=== PATIENT | female | born 1975 | race African-American/Black ===

== ENCOUNTER 2017-05-06 05:51 | Emergency (ER) | payer MEDICAID, OTHER ==
[~2017-05-06] VITALS: Ht 170.2 cm; Wt 116.0 kg
[2017-05-06 05:56] VITALS: BP 134/76
== END 2017-05-06 08:48 | disposition home or self-care (01) ==
LOC: ER 05:51
DX: R20.0 Anesthesia of skin (principal); R20.2 Paresthesia of skin; M79.671 Pain in right foot
CPT/HCPCS: 93971; 99284

== ENCOUNTER 2018-10-20 08:29 | Emergency (ER) | payer MEDICAID ==
[~2018-10-20] VITALS: Ht 172.7 cm; Wt 122.0 kg
[2018-10-20 08:50] VITALS: BP 146/91
[2018-10-20] MEDS ORDERED: KETOROLAC 60MG/2ML VIAL IM STA (09:01)
== END 2018-10-20 09:57 | disposition home or self-care (01) ==
LOC: ER 08:29
DX: K02.9 Dental caries, unspecified (principal); K08.89 Other specified disorders of teeth and supporting structures; I10 Essential (primary) hypertension
CPT/HCPCS: 81025; 96372; 99283; J1885

== ENCOUNTER 2023-04-08 20:11 | Emergency (ER) | payer MEDICAID ==
[~2023-04-08] VITALS: Ht 170.2 cm; Wt 123.0 kg
[2023-04-08 20:22] VITALS: O2SAT 99
[2023-04-08] MEDS ORDERED: ONDANSETRON 4MG ODT PO ONE (22:30)
[2023-04-08 22:37] LABS: BASOPHILS % 0.7 % (0.0-2.0); EOSINOPHILS % 0.7 % (0.0-5.0); HEMATOCRIT. 40.3 % (36.0-48.0); HEMOGLOBIN. 13.6 g/dL (12.0-16.0); LYMPHOCYTES % 31.8 % (20.0-50.0); MEAN CORPUSCULAR HEMOGLOBIN 31.4 pg (28.0-32.0); MEAN CORPUSCULAR HGB CONC 33.8 g/dL (31.0-37.0); MEAN PLATELET VOLUME 8.7 fl (7.4-10.4); MONOCYTES % 6.8 % (2.0-8.0); PLATELET 345 x1000/uL (130-400); RED BLOOD CELL COUNT 4.33 mill/uL (4.2-5.4); RED CELL DISTRIBUTION WIDTH 14.1 % (11.6-14.6); WHITE BLOOD COUNT 8.5 x1000/uL (4.5-11.0)
[2023-04-08 22:46] LABS: CHLORIDE 105 mEq/L (98-107); INDEX HEMOLYSI 1 (1-3); INDEX ICTERIC 1 (1-4); INDEX LIPEMIC 1 (1-3); POTASSIUM 3.5 mEq/L (3.5-5.1); SODIUM 137 mEq/L (136-145)
[2023-04-08 22:48] LABS: HCG SCREEN NEGATIVE
[2023-04-08 22:56] LABS: ALANINE AMINOTRANSFERASE 29 IU/L (13-61); ALBUMIN 3.7 g/dL (3.4-5.0); ASPARTATE AMINOTRANSFERASE 21 IU/L (15-37); BILIRUBIN TOTAL 0.5 mg/dL (0.1-1.0); CALCIUM 9.4 mg/dL (8.5-10.1); CARBON DIOXIDE 23 mEq/L (21-32); CREATININE 0.9 mg/dL (0.6-1.3); GLUCOSE 105 mg/dL (70-105); PROTEIN TOTAL 8.8 g/dL (6.0-8.3); TROPONIN I HIGH SENSITIVITY 9 ng/L (<54); UREA NITROGEN BLOOD 15 mg/dL (7-21)
[2023-04-08] MEDS: ACETAMINOPHEN 325MG TABLET PO NR ×2 (22:56→23:02)
[2023-04-08] MEDS ORDERED: KETOROLAC 30MG/ML VIAL IM NR (23:00)
[2023-04-08 23:10] VITALS: TEMP 98.4
[2023-04-08 23:22] VITALS: BP 155/83; PULSE 71; RESP 20
== END 2023-04-08 23:50 | disposition home or self-care (01) ==
LOC: ER 20:11
DX: R11.2 Nausea with vomiting, unspecified (principal); R51.9 Headache, unspecified
CPT/HCPCS: 99283; 80053; 81025; 84703; 85025; 84484; 36415; 96372; Q0162; J1885

== ENCOUNTER 2024-02-07 11:10 | Emergency (ER) | payer MEDICAID ==
[~2024-02-07] VITALS: Ht 172.7 cm; Wt 105.0 kg
[2024-02-07 11:15] VITALS: O2SAT 99
[2024-02-07] MEDS ORDERED: CELE100C MT (14:33)
[2024-02-07 14:51] VITALS: BP 148/78; PULSE 78; RESP 16; TEMP 98.5
== END 2024-02-07 14:57 | disposition home or self-care (01) ==
LOC: ER 11:10
DX: M17.12 Unilateral primary osteoarthritis, left knee (principal); I10 Essential (primary) hypertension; Z98.890 Other specified postprocedural states
CPT/HCPCS: 73562; 93971; 99284

== ENCOUNTER 2025-04-23 12:25 | Emergency (ER) | payer MEDICAID ==
[~2025-04-23] VITALS: Ht 170.2 cm; Wt 104.0 kg
[~2025-04-23 12:25] MED LIST: CELE100C MT
[2025-04-23 12:57] VITALS: O2SAT 98
[2025-04-23 15:50] VITALS: BP 105/70; PULSE 76; RESP 16; TEMP 36.7; O2SAT 98
== END 2025-04-23 15:51 | disposition home or self-care (01) ==
LOC: ER 12:25
DX: S93.501A Unspecified sprain of right great toe, initial encounter (principal); I10 Essential (primary) hypertension; Z79.899 Other long term (current) drug therapy; Z98.890 Other specified postprocedural states; X58.XXXA Exposure to other specified factors, initial encounter; Y93.89 Activity, other specified; Y92.89 Other specified places as the place of occurrence of the external cause; Y99.8 Other external cause status
CPT/HCPCS: 73660; 99283; Z7610